=== PATIENT | male | born 1990 | race Caucasian/White ===

== ENCOUNTER 2016-08-11 07:50 | Emergency (ER) | payer BC ==
[2016-08-11 08:15] VITALS: BP 139/78
[2016-08-11 10:09] LABS: C. TRACHOMATIS BY PCR NOT DETECTED; N. GONORRHOEAE BY PCR NOT DETECTED
[2016-08-11] MEDS ORDERED: Levofloxacin 500 MG Tab PO STA (11:12)
--- NOTE | 2016-08-11 11:24 | EDM.PDOC ---
ED HPI GENERAL MEDICAL PROBLEM - General Chief Complaint: Genitourinary Problem Stated Complaint: HIP AND GROIN PAIN Time Seen by Provider: 08/11/16 08:10 Source of Information: Reports: Patient, RN Notes Reviewed History Limitations: Reports: No Limitations - History of Present Illness INITIAL COMMENTS - FREE TEXT/NARRATIVE: The patient states that he developed left lower quadrant abdominal pain radiating to his left testicle Saturday afternoon, 08/06/2016. The pain is made worse if he flexes. Nothing makes it better. No recent injury. He has not noticed any inguinal bulging. No prior similar symptoms. The patient's PCP is Dr. Patel. Left Groin Pain Score (Numeric/FACES): 5 - Related Data Allergies Allergy/AdvReac Type Severity Reaction Status Date / Time No Known Allergies Allergy Verified 08/11/16 08:05 Home Meds: Home Meds Levofloxacin [Levaquin] 500 mg PO Q24H #4 tablet 08/11/16 [Rx] Past Medical History Gastrointestinal History: Reports: Irritable Bowel Syndrome Endocrine/Metabolic History: Reports: Obesity/BMI 30+ - Past Surgical History Male Surgical History: Reports: Vasectomy Social & Family History - Family History Family Medical History: Noncontributory - Tobacco Use Smoking Status *Q: Never Smoker Second Hand Smoke Exposure: No - Caffeine Use Caffeine Use: Reports: None - Alcohol Use Alcohol Use History: No - Recreational Drug Use Recreational Drug Use: No - Living Situation & Occupation Living situation: Reports: , with Spouse, with Family (1 child) Occupation: Employed ([employer]) ED ROS GENERAL - Review of Systems Review Of Systems: See Below Constitutional: Reports: No Symptoms HEENT: Reports: No Symptoms Respiratory: Reports: No Symptoms Cardiovascular: Reports: No Symptoms Endocrine: Reports: No Symptoms GI/Abdominal: Reports: No Symptoms : Reports: No Symptoms Musculoskeletal: Reports: No Symptoms Skin: Reports: No Symptoms Neurological: Reports: No Symptoms Psychiatric: Reports: No Symptoms Hematologic/Lymphatic: Reports: No Symptoms Immunologic: Reports: No Symptoms ED EXAM, RENAL/ - Physical Exam Exam: See Below Exam Limited By: No Limitations General Appearance: Alert, WD/WN, No Apparent Distress GI/Abdominal: Normal Bowel Sounds, Soft, Non-Tender, No Organomegaly, No Distention, No Abnormal Bruit, No Mass (Male) Exam: No Hernia, Testicular Mass (mild, consistent with epididymitis) , Testicular Tenderness (L). No: Scrotal Swelling, Scrotum Tenderness (L), Scrotum Tenderness (R), Testicular Tenderness (R) Course - Vital Signs Last Recorded V/S: Last Vital Signs Temp 36.3 C 08/11/16 08:05 Pulse 70 08/11/16 08:05 Resp BP 139/78 08/11/16 08:05 Pulse Ox 99 08/11/16 08:05 - Orders/Labs/Meds Labs: Laboratory Tests 08/11/16 Range/Units 08:10 C trachomatis DNA (PCR) Not detected N gonorrhoeae DNA (PCR) Not detected Meds: Medications Discontinued Medications Generic Name Dose Route Start Last Admin Trade Name Sundar PRN Reason Stop Dose Admin Levofloxacin 500 mg 08/11/16 11:12 08/11/16 11:27 Levaquin PO 08/11/16 11:13 500 mg ONETIME STA Administration - Re-Assessments/Exams Free Text/Narrative Re-Assessment/Exam: 08/11/16 11:17 Test results discussed with the patient. Clinically, the patient has epididymitis, but not due to gonorrhea or chlamydia. Current guidelines recommend monotherapy with a fluoroquinolone. I have started the patient on oral Levaquin, and will e-prescribe an additional 4 days. I will refer him to Dr. Ruvalcaba, should his symptoms not improve. Departure - Departure Time of Disposition: 11:18 Disposition: Home, Self-Care 01 Condition: Good Clinical Impression: Left epididymitis - Discharge Information Prescriptions: Levofloxacin [Levaquin] 500 mg PO Q24H #4 tablet Instructions: Epididymitis Referrals: Brad Patel Jr, MD [Primary Care Provider] - Hadley Ruvalcaba MD [Physician] - Forms: ED Department Discharge Additional Instructions: You were seen in the emergency room for left testicular pain. On examination, you have epididymitis. You have been started on the antibiotic Levaquin. Take one tablet every mid day , starting tomorrow, 08/12/2016. Finish the entire prescription unless told otherwise by a doctor. If your symptoms have not improved after 5 days, please follow-up with the Urologist Dr. Ruvalcaba. If any other problems, please do not hesitate to return to the ER.
== END 2016-08-11 11:30 | disposition home or self-care (01) ==
LOC: JD.ED 07:50
DX: N45.1 Epididymitis (principal); E66.9 Obesity, unspecified; Z68.32 Body mass index [BMI] 32.0-32.9, adult
CPT/HCPCS: 87491; 87591; 99283; A9270